=== PATIENT | male | born 2005 | race Two or more races ===

== ENCOUNTER 2025-06-12 17:50 | Emergency (ER) | payer BC, SELFPAY ==
[2025-06-12] VITALS (7 sets, daily range): BP systolic 96–138; BP diastolic 62–75; PULSE 71–113; RESP 16–18; TEMP 37.6; O2SAT 96–100
--- OUTSIDE RECORDS SUMMARY | 2025-06-12 17:59 | XMS_ITS | Encounter Summary ---
Author Organization [facility] Address [address] [place] [address] Care Team Providers Care Ceramic Research Engineer Name Role Phone Sebas Means MD Primary Care Provider +1 [phone] Encounter Details Date Type Department Care Team (Latest Contact Info) Description 02/02/2005 Outpatient Historical [facility] Medicine [address] [phone] Romy Carrera MD [address] [place] [phone] THRUSH (Primary Dx) Social History Tobacco Use Types Packs/Day Years Used Date Smoking Tobacco: Never Assessed Sex and Gender Information Value Date Recorded Sex Assigned at Not on file 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
--- OUTSIDE RECORDS SUMMARY | 2025-06-12 17:59 | XMS_ITS | Encounter Summary ---
Author Organization [facility] Address [address] [place] [address] Care Team Providers Care Geographic Area Intelligence Officer Name Role Phone Sebas Means MD Primary Care Provider [phone] [phone] Encounter Details Date Type Department Care Team (Latest Contact Info) Description 2004 Outpatient Historical [facility] Medicine [address] [phone] Romy Carrera MD [address] [place] [phone] Routine child health exam (Primary Dx) Social History Tobacco Use Types Packs/Day Years Used Date Smoking Tobacco: Never Assessed Sex and Gender Information Value Date Recorded Sex Assigned at Not on file 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
--- OUTSIDE RECORDS SUMMARY | 2025-06-12 17:59 | XMS_ITS | Clinical Summary ---
Author Organization [facility] Address [address] [place] [address] Care Team Providers Care Composition Roofer Name Role Phone Sebas Means MD Primary Care Provider +1 [phone] Allergies Active Allergy Reactions Criticality Noted Date Comments Azithromycin Rash Low 07/17/2016 Medications ACETAMINOPHEN (CHILDREN'S TYLENOL ORAL) Take by mouth. Active ibuprofen (ADVIL;MOTRIN) 100 mg/5 mL Oral suspension Take 200 mg by mouth every 6 hours as needed. Active OTHER OTC nasal spray . Active triamcinolone acetonide (KENALOG) 0.5 % Cream Apply to affected area 2 times daily. 15 Gram 8 Active HYDROcodone-aceta minophen (NORCO) 5-325 mg tabletIndications :Closed nondisplaced fracture of shaft of left clavicle, initial encounter Take 1 Tablet by mouth every 6 hours as needed for Pain. Max Daily Amount: 4 Tablets 12 Tablet 0 Active HYDROcodone-aceta minophen (NORCO) 5-325 mg tabletIndications :Closed nondisplaced fracture of shaft of left clavicle, initial encounter Take 1 Tablet by mouth every 6 hours as needed for Pain. Max Daily Amount: 4 Tablets 4 Tablet 0 Active Active Problems Problem Noted Date Diagnosed Date Reactive airway disease 11/14/2009 Immunizations Immunization Administration Dates Next Due (M-M-R II/PRIORIX)(12 MO UP) MEASLES, MUMPS AND RUBELLA VIRUS VACCINE, 0.5 ML IM/SUBCUT 01/07/2010 (VARIVAX)(12 MOS UP)VARICELL A VIRUS VACCINE (PF) 0.5 ML, SUB CUT 01/07/2010 Dt Dtp Dtap Vaccine 04/11/2006,01/31/2005 HIB, Unspecified Formulation 04/11/2006,02/01/20 05 Hepatitis B Vaccine 01/31/2005 IPV/OPV 01/31/2005 Pneumococcal 7-valent conjugate vaccine IM 01/02,01/31/2005 Family History Medical History Relation Name Comments Healthy Father Healthy Maternal Grandfather Healthy Maternal Grandmother Healthy Mother Diabetes Paternal Grandfather Hypertension Paternal Grandfather Hypertension Paternal Grandmother Breast Cancer Neg Hx Colon Cancer Neg Hx Relation Name Status Comments Father Alive Maternal Grandfather Maternal Grandmother Mother Alive Paternal Grandfather Paternal Grandmother Social History Tobacco Use Types Packs/Day Years Used Date Smoking Tobacco: Never Smokeless Tobacco: Never Alcohol Use Standard Drinks/Week Comments No 0 (1 standard drink = 0.6 oz pur e alcohol) Sex and Gender Information Value Date Recorded Sex Assigned at Not on file 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 Gender Identity Not on file Sexual Orientation Not on file Occupation Industry Job Start Date Job End Date Not on file Not on file Not on file Not on file Last Filed Vital Signs Vital Sign Reading Time Taken Comments Blood Pressure 125/64 05/06/2020 7:17 PM CDT Pulse 60 04/12/2018 4:06 PM CDT Temperature 36.8 C (98.3 F) 05/06/2020 7:17 PM CDT Respiratory Rate 20 05/06/2020 7:17 PM CDT Oxygen Saturation 99% 05/06/2020 7:17 PM CDT Inhaled Oxygen Concentration - - Weight 65.5 kg (144 lb 6.4 oz) 05/06/2020 4:38 P M CDT Height 171.5 cm (5' 7.5 ) 05/06/2020 4:38 PM CDT Body Mass Index 22.28 05/06/2020 4:38 PM CDT Plan of Treatment Health Maintenance Due Date Last Done Comments HEPATITIS B VACCINES (2 of 3 - 3-dose series) 02/28/2005 01/31/2005 CHLAMYDIA SCREENING (ANNUAL) 11-24 YEARS 11/30/2015 HPV VACCINES (1 - Male 3-dose series) 11/30/2019 DTAP/TDAP/TD VACCINES (3 - Tdap) 11/30/2023 04/11/20, 01/31/2005 Preventative Visit-Managed Medicaid 11/30/202312/02 INFLUENZA VACCINE (#1) 2025 Insurance [facility] MEDICAID Care Teams Composition Roofer Relationship Specialty Start Date End Date Sebas Means MD [address] [facility] [address] [place] [phone] PCP - General Family Practice 03/29/18
--- OUTSIDE RECORDS SUMMARY | 2025-06-12 17:59 | XMS_ITS | Encounter Summary ---
Author Organization [facility] Address [address] [place] [address] Care Team Providers Care Cleaner Furniture Name Role Phone Sebas Means MD Primary Care Provider [phone] [phone] Encounter Details Date Type Department Care Team (Late st Contact Info) Description 06/04/2020 Ancillary Orders [facility] [employer] [place] [address] [place] [address] Toya Carpio MD [address] [place] [address] Displaced fracture of lateral end of left clavicle, initial encounter for closed fracture Social History Tobacco Use Types Packs/Day Years Used Date Smoking Tobacco: Never Smokeless Tobacco: Never Alcohol Use Standard Drinks/Week Comments No 0 (1 standard drink = 0.6 oz pur e alcohol) Sex and Gender Information Value Date Recorded Sex Assigned at Not on file 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 No / Unsure 06/04/2020 2:36 PM CDT documented as of this encounter Plan of Treatment Not on file documented as of this encounter Results * XR CLAVICLE LEFT (06/04/2020 2:55 PM CDT) Anatomical Region Laterality Modality Upper Extremity Computed Radiogr aphy 06/04/2020 2:56 PM CDT Impressions 06/04/2020 3:12 PM CDT IMPRESSION: Please see below. Exam: XR CLAVICLE LEFT Date/Time of Exam: 06/04/2020 2:55 PM Reason For Exam: See Diagnosis. Diagnosis: Displaced fracture of lateral end of left clavicle, initial encounter for closed fracture. Comparison: May 06, 2020. FINDINGS: Two frontal projections show healing mid clavicular fracture. Alignment is anatomic. Prominent surrounding callus formation. Narrative Procedure Note LigiaRanDO - 06/04/2020 IMPRESSION: Please see below. Exam: XR CLAVICLE LEFT Date/Time of Exam: 06/04/2020 2:55 PM Reason For Exam: See Diagnosis. Diagnosis: Displaced fracture of lateral end of left clavicle, initial encounter for closed fracture. Comparison: May 06, 2020. FINDINGS: Two frontal projections show healing mid clavicular fracture. Alignment is anatomic. Prominent surrounding callus formation. Toya Carpio MD DIAGNOSTIC IMAGING ORDERAB LES Final Result documented in this encounter Visit Diagnoses Diagnosis Displaced fracture of lateral end of left clavicle, initial encounter for closed fracture Displaced fracture of lateral end of left clavicle, initial encounter for closed fracture documented in this encounter Care Teams Cleaner Furniture Relationship Specialty Start Date End Date Sebas Means MD [address] [phone] PCP - General Family Practice 03/29/18 documented as of this encounter
--- OUTSIDE RECORDS SUMMARY | 2025-06-12 17:59 | XMS_ITS | Clinical Summary ---
Author Organization [facility] Address [address] [facility] Attn: Epic Prelude ADT [place] [address] Care Team Providers Care Director Of Ancillary Services Name Role Phone Sebas Means MD Primary Care Provider [phone] [phone] Allergies Active Allergy Reactions Criticality Noted Date Comments Azithromycin Rash Low 07/17/2016 Medications No known medications Active Problems Problem Noted Date Diagnosed Date [...] Date Smoking Tobacco: Never Smokeless Tobacco: Never Tobacco Cessation:Counseling Given: Not Answered Alcohol Use Standard Drinks/Week Comments No 0 (1 standard drink = 0.6 oz pur e alcohol) Adolescent Education Answer Date Record ed Getting School Help Needed Not on file 03/25 Feeling Safe Answer Date Recorded Are you in a relationship wi th someone who hurts you emotionally and/or physically? No 04/06/2023 Sex and Gender Information Value Date Recorded Sex Assigned at Not on file Legal Sex Male 2:[address] OPERATOR Gender Identity Not on file Sexual Orientation Not on file Last Filed Vital Signs Vital Sign Reading Time Taken Comments Blood Pressure 125/63 04/06/2023 10:30 PM CDT Pulse 71 04/06/2023 10:30 PM CDT Temperature 36.8 C (98.2 F) 04/06/2023 10:30 PM CDT Respiratory Rate 16 04/06/2023 10:30 PM CDT Oxygen Saturation 100% 04/06/2023 10:30 PM CDT Inhaled Oxygen Concentration - - Weight 73.3 kg (161 lb 8 oz) 04/06/2023 7:41 PM CDT Height 177.8 cm (5' 10 ) 04/06/2023 7:41 PM CDT Body Mass Index 23.17 04/06/2023 7:41 PM CDT Plan of Treatment Health Maintenance Due Date Last Done Comments HEPATITIS B VACCINES (2 of 3 - 3-dose series) 02/28/2005 01/31/2005 CHLAMYDIA SCREENING (ANNUAL) 11-24 YEARS 11/30/2015 HPV VACCINES (1 - Male 3-dose series) 11/30/2019 DTAP/TDAP/TD VACCINES (3 - Tdap) 11/30/2023 04/11/20 06, 01/31/2005 Preventative Visit-Managed Medicaid 11/30/2023 INFLUENZA VACCINE (#1) [address] [place] [address] MEDICAID [facility] MEDICAID Care Teams Director Of Ancillary Services Relationship Specialty Start Date End Date Sebas Means MD [address] [facility] [address] [place] [phone] PCP - General Family Practice 03/29/18
--- OUTSIDE RECORDS SUMMARY | 2025-06-12 17:59 | XMS_ITS | Patient Health Record ---
Author Organization [facility] Address [address] [place] [address] Support Name Relationship Address Phone Princess Shorty Emergency Contact [address] [place], [place] [address] Princess Shorty Guarantor Unknown Reason For Referral No Information Plan Of Treatment No Information Insurance Providers Payer Name Payer Address Payer Phone Subscriber Number Group Number Insured Name Patient Relationship to Insured Coverage Start Date Coverage End Date [facility] Blue Medicaid [address] [address] [place] [address] [id number] Sebas Oro Self - patient is the insured [facility] Medicaid [address] [place] [address] [id number] Sebas Oro Self - patient is the insured
--- OUTSIDE RECORDS SUMMARY | 2025-06-12 17:59 | XMS_ITS | Encounter Summary ---
Author Organization [facility] Address [address] [place] [address] Care Team Providers Care Senior Mobile Application Developer Name Role Phone Sebas Means MD Primary Care Provider [phone] [phone] Encounter Details Date Type Department Care Team (Latest Contact Info) Description 2004 Outpatient Historical [facility] Medicine [address] [phone] Romy Carrera MD [address] [place] [phone] FEVER (Primary Dx) Social History Tobacco Use Types Packs/Day Years Used Date Smoking Tobacco: Never Assessed Sex and Gender Information Value Date Recorded Sex Assigned at Not on file 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
--- NOTE | 2025-06-12 18:25 | CTR_ITS ---
PROCEDURE INFORMATION: Exam: CT Abdomen And Pelvis With Contrast Exam date and time: 06/12/2025 6:33 PM Age: 19 years old Clinical indication: Abnormal findings; Abnormal lab test; Other: Anemia/elevated bili; Anemia with hyperbilirubinemia. Jaundiced sclera. ; Additional info: Jaundice TECHNIQUE: Imaging protocol: Computed tomography of the abdomen and pelvis with contrast. Radiation optimization: All CT scans at this facility use at least one of these dose optimization techniques: automated exposure control; mA and/or kV adjustment per patient size (includes targeted exams where dose is matched to clinical indication); or iterative reconstruction. Contrast material: OMNI 350; Contrast volume: 100 ml; Contrast route: INTRAVENOUS (IV); COMPARISON: CR (CHEST, ) 06/12/2025 6:25 PM RADIATION DOSE METRICS: Total DLP (mGy-cm): 430.29 FINDINGS: Liver: Diffusely hypoattenuating liver parenchyma suggestive of hepatic steatosis. Gallbladder and biliary ducts: Normal. No calcified stones. No ductal dilation. Pancreas: Normal. No ductal dilation. Spleen: Splenomegaly. Adrenal glands: Normal. No mass. Kidneys and ureters: Subcentimeter hypoattenuating focus in the mid kidney compatible with simple cysts. Stomach and bowel: Unremarkable. No obstruction. No mucosal thickening. Appendix: No evidence of appendicitis. Intraperitoneal space: Unremarkable. No free air. No significant fluid collection. Vasculature: Unremarkable. No abdominal aortic aneurysm. Lymph nodes: Unremarkable. No enlarged lymph nodes. Urinary bladder: Unremarkable as visualized. Reproductive: Unremarkable as visualized. Bones/joints: Unremarkable. No acute fracture. Soft tissues: Unremarkable. CT/CT abdomen pelvis w con* [id number] IMPRESSION: 1. Diffusely hypoattenuating liver parenchyma suggestive of hepatic steatosis. 2. Splenomegaly. COMMENTS: Consistent with the [employer]'s Incidental Findings Committee white paper (J Am Ankur Radiol 2018): Any incidental renal lesion less than 1 cm or classified as too small to characterize, or any incidental cystic renal lesion characterized as simple-appearing, is likely benign. No follow-up imaging is recommended for these lesions per consensus recommendations based on imaging criteria.
--- NOTE | 2025-06-12 18:25 | W.ED.RECABL ---
HPI - Recheck/Abnormal Lab/Rx General: Chief Complaint: Recheck/Abnormal Lab/Rx Stated Complaint: Hemoglobin 6. bilo high doc sent Time Seen by Provider: 06/12/25 18:16 Source: patient Mode of arrival: ambulatory Limitations: no limitations History of Present Illness: 19-year-old male states he has not been feeling well over the last month had increased weakness notices been having jaundice. Patient states he is a former drinker but has not drank in 5 months he denies any vomiting denies any blood in his stools. States just feels very weak and gets short of breath with exertion. Patient was seen at [facility] and was found to be anemic along with having an elevated bilirubin. He has no history of any liver issues denies any worsening. Factors Related Data Previous Rx's ?Medication ?Instructions ?Recorded ketoconazole 2 % shampoo See Rx Instructions topical 06/05/25 DIRECTED 30 days #240 mL Allergies Allergy/AdvReac Type Severity Reaction Status Date / Time amoxicillin Allergy Severe rash Verified 09/22/22 15:43 azithromycin (From Zithromax) Allergy Intermediate hives Verified 09/22/22 15:43 [facility] ED PFS: Medical History (Updated 06/13/25 @ 01:36 by Mary Pandya MD) Scleral icterus Encounter for screening for cardiovascular disorders Medication management History of alcohol abuse Jaundice Tinea versicolor Skin yeast infection Environmental and seasonal allergies . Pharyngitis Otitis media Social History Smoking and tobacco/nicotine status: never used tobacco/nicotine Physical Exam Const: COMMON NORMALS: patient oriented x3 GENERAL APPEARANCE: ill appearing HENMT: COMMON NORMALS: normocephalic and atraumatic HEAD & SCALP: normocephalic and atraumatic Eye: COMMON NORMALS: Equal, round and reactive pupils present and EOMs intact bilaterally PUPIL: Yes Equal, round and reactive pupils present OTHER: scleral icterus Neck/C-Spine: COMMON NORMALS: full ROM and supple Chest: COMMONS NORMALS: normal inspection of the chest and normal palpation of entire chest wall Resp: COMMON NORMALS: normal respiratory effort, No retractions, No use of accessory muscles and clear to auscultation bilaterally AUSCULTATION: clear to auscultation bilaterally Cardio: COMMON NORMALS: regular rate, regular rhythm and No murmurs present (Cardio) RATE: regular rate and tachycardic RHYTHM: regular rhythm GI: COMMON NORMALS: Normal to inspection, nondistended, normoactive bowel sounds present, Soft to palpation, non-tender and no masses PALPATION: Yes Soft to palpation Extremity: COMMON NORMALS: normal to inspection and full ROM Neuro: COMMON NORMALS: patient oriented x3, moves all extremities and no focal motor deficits Psych: COMMON NORMALS: mental status grossly normal, Normal thought process present and cooperative THOUGHT PROCESS: Normal thought process present Skin: COMMON NORMALS: no rashes or lesions noted and no wounds GENERAL SKIN EXAM: no rashes or lesions noted Course Vital Signs: Vital signs: Vital Signs Temperature 99.6 F 06/12/25 18:03 Pulse Rate 91 06/13/25 01:00 Respiratory Rate 16 06/12/25 19:00 Blood Pressure 128/72 06/13/25 01:00 Pulse Oximetry 100 06/13/25 01:00 Oxygen Delivery Me thod Room Air 06/13/25 01:00 MDM - Recheck/Abnormal Lab/Rx Medical Decision Making 19-year-old male presented here stating had labs drawn at office earlier today that showed elevated bilirubin along with anemia. States he has been feeling ill over the last 3 weeks. Patient was found to be anemic along with an elevated bilirubin. Did a CT scan here that showed hepatic steatosis along with splenomegaly. He is found to have hepatitis B likely causing his elevated bilirubin. He likely has a hemolytic anemia causing his anemia. I did speak to [facility] and will transfer there for higher level of care for hepatology. I did speak to Dr. Lacey who is excepting at this time. Patient's vitals here been normal we will transfuse him blood here. I informed patient of the findings and he understands and agrees to plan. Medical Records I reviewed the patient's medical records. Lab Data I reviewed the patient's lab results. 06/12/25 18:23 06/12/25 18:23 Radiology Impressions Abdomen/Pelvis CT 06/12/25 18:25 IMPRESSION: 1. Diffusely hypoattenuating liver parenchyma suggestive of hepatic steatosis. 2. Splenomegaly. COMMENTS: Consistent with the [employer]'s Incidental Findings Committee white paper (J Am Ankur Radiol 2018): Any incidental renal lesion less than 1 cm or classified as too small to characterize, or any incidental cystic renal lesion characterized as simple-appearing, is likely benign. No follow-up imaging is recommended for these lesions per consensus recommendations based on imaging criteria. Chest X-Ray 06/12/25 18:26 IMPRESSION: No acute findings. Laboratory Results WBC 3.06 10^3/uL (4.5-13.0) L 06/12/25 18: RBC 1.64 10^6/uL (3.85-5.65) L 06/12/25 18:23 Hgb 6.10 g/dL (13.2-15.6) L* 06/12/25 18: Hct 19.0 % (37-53) L* 06/12/25 18: MCV 115.9 fl (82-101) H 06/12/25 18: MCH 37.2 pg (27-33) H 06/12/25 18: MCHC 32.1 g/dL (30-55) 06/12/25 18: RDW 17.3 % (12.1-15.1) H 06/12/25 18:23 Plt Count 165 10^3/cmm (157-399) 06/12/25 18: MPV 9.6 fL (7.4-10.4) 06/12/25 18: Neut % (Auto) 80.7 % 06/12/25 18: Lymph % (Auto) 12.4 % 06/12/25 18: [place] % (Auto) 5.6 % 06/12/25 18: Eos % (Auto) 0.3 % 06/12/25 18: Baso % (Auto) 0.3 % 06/12/25 18: Neut # (Auto) 2.47 10^3/uL (1.8-8.0) 06/12/25 18: Lymph # (Auto) 0.4 10^3/uL (1.5-6.5) L 06/12/25 18: [place] # (Auto) 0.2 10^3/uL (0.2-0.9) 06/12/25 18: Eos # (Auto) 0.0 10^3/uL (0.0-0.8) 06/12/25 18: Baso # (Auto) 0.0 10^3/uL (0.0-0.1) 06/12/25 18: Nucleated RBC % (auto) 0 % 06/12/25 18: Nucleated RBCs # 0.0 /100WBC 06/12/25 18:23 PT 14.80 SECONDS (12.1-14.9) 06/12/25 18:23 INR 1.08 (0.8-1.2) 06/12/25 18:23 Sodium 141 mmol/L (136-145) 06/12/25 18:23 Potassium 3.6 mmol/L (3.5-5.1) 06/12/25 18:23 Chloride 106 mmol/L (98-107) 06/12/25 18: Carbon Dioxide 22 mmol/L (22-29) 06/12/25 18:23 Anion Gap 16.6 (5-19) 06/12/25 18:23 BUN 13 mg/dL (6-20) 06/12/25 18: Creatinine 0.8 mg/dL (0.7-1.2) 06/12/25 18:23 GFR Calculation 123.2 mL/min (90-130) 06/12/25 18:23 Glucose 90 mg/dL (65-115) 06/12/25 18:23 Calculated Osmolality 292 mOsm/kg (285-295) 06/12/25 18:23 Calcium 9.1 mg/dL (8.5-10.5) 06/12/25 18:23 Total Bilirubin 4.2 mg/dL (0.15-1.2) H 06/12/25 18:23 AST 29 U/L (0-40) 06/12/25 18:23 ALT 18 U/L (0-41) 06/12/25 18:23 Alkaline Phosphatase 99 U/L (40-130) 06/12/25 18: Lactate Dehydrogenase 415 U/L (135-225) H 06/12/25 18:23 Total Protein 7.2 g/dL (6.6-8.7) 06/12/25 18:23 Albumin 5.1 g/dL (3.5-5.2) 06/12/25 18: Globulin 2.1 g/dL (1.3-4.6) 06/12/25 18:23 Ethyl Alcohol < 10 mg/dL (0-10) 06/12/25 18:23 Hepatitis A IgM Ab Non-reactive (Nonreactive) 06/12/25 18:23 Hep Bs Antibody 6.0 (11.5-1000) L 06/12/25 18:23 Hep B Core Total Ab Non-reactive (Nonreactive) 06/12/25 18:23 Hepatitis C Antibody Non-reactive (Nonreactive) 06/12/25 18:23 Blood Type O Positive 06/12/25 18:29 Rho(D) Type Rh positive 06/12/25 18:29 Antibody Screen Positive 06/12/25 18:29 Crossmatch See Detail 06/12/25 18:29 All radiology interpretation(s) finalized by discharge EKG Data EKG 1: I personally reviewed and interpreted this EKG as follows: EKG interpretation date: 06/12/25 EKG interpretation time: 18:08 Interpretation: sinus tach hr [address] elevation qrs 89 qtc 368 Critical Care Time Critical Care Time: Critical Care Time: Yes Total Critical Care Time: 50 Attestation: The high probability of a clinically significant, sudden or life threatening deterioration of the patient's hepatic system(s) required my full and direct attention, intervention and personal management. The critical care time is as shown. This time is in addition to time spent performing any reported procedures but includes the following: [x] Data and vital sign review and interpretation [x] Patient assessment, examination and intervention [x] Documentation [x] Medication orders and management Discharge Plan Discharge Patient Disposition: Xfer Short-Term Hosp Clinical Impression: Hepatitis B, Anemia Condition: Stable Referrals: KYA Maravilla, FRUIT PEELER [Primary Care Provider, [facility]] Print Language: Micronesian Coding Level of Care Code ED Beam Dyer for Yaima Valerio
--- NOTE | 2025-06-12 18:26 | XRR_ITS ---
PROCEDURE INFORMATION: Exam: XR Chest Exam date and time: 06/12/2025 6:25 PM Age: 19 years old Clinical indication: Shortness of breath; C/O SOB TECHNIQUE: Imaging protocol: Radiologic exam of the chest. Views: 1 view. COMPARISON: No relevant prior studies available. FINDINGS: Lungs: Unremarkable. No consolidation. Pleural spaces: Unremarkable. No pleural effusion. No pneumothorax. Heart/Mediastinum: Unremarkable. No cardiomegaly. Bones/joints: Unremarkable. XR/XR chest 1V portable [id number] IMPRESSION: No acute findings.
[2025-06-12 18:28] LABS: Mean Corpuscular HGB Conc 32.1 g/dL (30-55); Mean Corpuscular Hemoglobin 37.2 pg (27-33); Mean Corpuscular Volume 115.9 fl (82-101); Nucleated Red Blood Cells % 0 %; Platelet Count 165 10^3/cmm (157-399); Red Blood Count 1.64 10^6/uL (3.85-5.65); White Blood Count 3.06 10^3/uL (4.5-13.0)
[2025-06-12] MEDS: iohexol 350 mg/mL 500 mL Btl (per mL) IV (18:40)
--- NOTE | 2025-06-12 18:43 | ECG_ITS ---
[facility] Test Date: 2025-06-12 Pat Name: Sebas Oro Department: Room: Gender: Male [employer] Super[employer]: : [id number] Requested By: Mary Pandya Order Number: [id number] Toussaint MD: Diaz Davidson M.D. Measurements Intervals [place] Rate: 104 P: 64 CA: 153 QRS: 58 QRSD: 94 T: 50 QT: 320 QTc: 422 Interpretive Statements SINUS TACHYCARDIA No previous ECG available for comparison Electronically Signed On 06-13-2025 11:57:31 CDT by Diaz Davidson M.D. [id number] [id number]
[2025-06-12 19:02] LABS: Alanine Aminotransferase 18 U/L (0-41); Albumin Level 5.1 g/dL (3.5-5.2); Alkaline Phosphatase 99 U/L (40-130); Anion Gap 16.6 (5-19); Aspartate Amino Transferase 29 U/L (0-40); Blood Urea Nitrogen 13 mg/dL (6-20); Calcium 9.1 mg/dL (8.5-10.5); Carbon Dioxide 22 mmol/L (22-29); Chloride 106 mmol/L (98-107); Creatinine Clr Calc Pharmacy 158.3842; Globulin 2.1 g/dL (1.3-4.6); Glucose 90 mg/dL (65-115); Osmolality Calculated 292 mOsm/kg (285-295); Potassium 3.6 mmol/L (3.5-5.1); Sodium 141 mmol/L (136-145); Total Protein 7.2 g/dL (6.6-8.7)
[2025-06-12 19:03] LABS: INR 1.08 (0.8-1.2); Prothrombin Time 14.80 SECONDS (12.1-14.9)
[2025-06-12 19:04] LABS: Alcohol Level < 10 mg/dL (0-10)
[2025-06-12 19:18] LABS: Hematocrit 19.0 % (37-53); Hemoglobin 6.10 g/dL (13.2-15.6)
[2025-06-13] VITALS (9 sets, daily range): BP systolic 107–133; BP diastolic 46–72; PULSE 72–91; RESP 16; O2SAT 94–100
[2025-06-13 00:52] LABS: Hepatitis A Antibody IgM Non-Reactive (Nonreactive)
== END 2025-06-13 08:15 | disposition short-term general hospital (02) ==
PROVIDERS: Emergency Provider Emergency Medicine; PCP Nurse Practitioner Family
DX: B19.10 Unspecified viral hepatitis B without hepatic coma (principal); D64.9 Anemia, unspecified
CPT/HCPCS: 36415; 71045; 74177; 80053; 80061; 80307; 80503; 81003; 82247; 82248; 82306; 83036; 83615; 84439; 84443; 85025; 85610; 86705; 86706; 86709; 86803; 86850; 86870; 86900; 86920; 87340; 93005; 96360; 99285; J7030; J9999

== ENCOUNTER 2025-06-18 12:54 | Outpatient (CLI) | payer BC, MEDICAID, SELFPAY ==
[2025-06-18 14:01] LABS: Hematocrit 28.6 % (37-53); Hemoglobin 9.40 g/dL (13.2-15.6); Mean Corpuscular HGB Conc 32.9 g/dL (30-55); Mean Corpuscular Hemoglobin 35.2 pg (27-33); Mean Corpuscular Volume 107.1 fl (82-101); Nucleated Red Blood Cells % 0 %; Platelet Count 185 10^3/cmm (157-399); Red Blood Count 2.67 10^6/uL (3.85-5.65); White Blood Count 4.20 10^3/uL (4.5-13.0)
[2025-06-18 14:17] LABS: Alanine Aminotransferase 14 U/L (0-41); Albumin Level 4.6 g/dL (3.5-5.2); Alkaline Phosphatase 68 U/L (40-130); Anion Gap 15.0 (5-19); Aspartate Amino Transferase 12 U/L (0-40); Blood Urea Nitrogen 12 mg/dL (6-20); Calcium 8.7 mg/dL (8.5-10.5); Carbon Dioxide 23 mmol/L (22-29); Chloride 105 mmol/L (98-107); Globulin 1.8 g/dL (1.3-4.6); Glucose 106 mg/dL (65-115); Osmolality Calculated 288 mOsm/kg (285-295); Potassium 4.0 mmol/L (3.5-5.1); Sodium 139 mmol/L (136-145); Total Protein 6.4 g/dL (6.6-8.7)
[2025-06-19 00:48] LABS: Estmated Average Glucose 88; Hemoglobin A1C 4.7 % (4.0-6.0)
== END 2025-06-18 12:55 | disposition home or self-care (01) ==
LOC: LAB 13:00
PROVIDERS: PCP Nurse Practitioner Family; Visit Provider Nurse Practitioner Family
DX: D59.11 Warm autoimmune hemolytic anemia (principal); R17 Unspecified jaundice; F10.11 Alcohol abuse, in remission; Z79.899 Other long term (current) drug therapy; Z13.6 Encounter for screening for cardiovascular disorders
CPT/HCPCS: 36415; 80053; 83010; 83036; 83615; 85025; 85045

== ENCOUNTER → 2025-06-25 09:47 | Outpatient (BNVA) | payer BC, MEDICAID, SELFPAY | PROVIDERS: PCP Nurse Practitioner Family; Visit Provider Nurse Practitioner Family | DX: D59.11 Warm autoimmune hemolytic anemia (principal); Z79.899 Other long term (current) drug therapy | CPT/HCPCS: 80053; 83010; 83615; 85025; 85045 ==

== ENCOUNTER 2025-07-15 12:45 | Oncology outpatient (recurring) (ONCR) | payer BC, MEDICAID, SELFPAY ==
[2025-07-01 16:41] LABS: Hematocrit 33.7 % (37-53); Hemoglobin 11.30 g/dL (13.2-15.6); Mean Corpuscular HGB Conc 33.5 g/dL (30-55); Mean Corpuscular Hemoglobin 35.4 pg (27-33); Mean Corpuscular Volume 105.6 fl (82-101); Nucleated Red Blood Cells % 0 %; Platelet Count 211 10^3/cmm (157-399); Red Blood Count 3.19 10^6/uL (3.85-5.65); White Blood Count 6.34 10^3/uL (4.5-13.0)
[2025-07-01 16:48] LABS: Alanine Aminotransferase 33 U/L (0-41); Albumin Level 5.1 g/dL (3.5-5.2); Alkaline Phosphatase 64 U/L (40-130); Anion Gap 16.5 (5-19); Aspartate Amino Transferase 18 U/L (0-40); Blood Urea Nitrogen 15 mg/dL (6-20); Calcium 9.5 mg/dL (8.5-10.5); Carbon Dioxide 23 mmol/L (22-29); Chloride 103 mmol/L (98-107); Globulin 2.0 g/dL (1.3-4.6); Glucose 116 mg/dL (65-115); Osmolality Calculated 288 mOsm/kg (285-295); Potassium 4.5 mmol/L (3.5-5.1); Sodium 138 mmol/L (136-145); Total Protein 7.1 g/dL (6.6-8.7)
[2025-07-15 13:53] LABS: Hematocrit 37.7 % (37-53); Hemoglobin 12.80 g/dL (13.2-15.6); Mean Corpuscular HGB Conc 34.0 g/dL (30-55); Mean Corpuscular Hemoglobin 34.1 pg (27-33); Mean Corpuscular Volume 100.5 fl (82-101); Nucleated Red Blood Cells % 0 %; Platelet Count 228 10^3/cmm (157-399); Red Blood Count 3.75 10^6/uL (3.85-5.65); White Blood Count 7.06 10^3/uL (4.5-13.0)
[2025-07-15 14:08] LABS: Alanine Aminotransferase 14 U/L (0-41); Albumin Level 4.9 g/dL (3.5-5.2); Alkaline Phosphatase 56 U/L (40-130); Anion Gap 13.8 (5-19); Aspartate Amino Transferase 11 U/L (0-40); Blood Urea Nitrogen 10 mg/dL (6-20); Calcium 9.6 mg/dL (8.5-10.5); Carbon Dioxide 25 mmol/L (22-29); Chloride 105 mmol/L (98-107); Creatinine Clr Calc Pharmacy 215.2100; Globulin 1.8 g/dL (1.3-4.6); Glucose 108 mg/dL (65-115); Osmolality Calculated 290 mOsm/kg (285-295); Potassium 3.8 mmol/L (3.5-5.1); Sodium 140 mmol/L (136-145); Total Protein 6.7 g/dL (6.6-8.7)
== END 2025-07-26 23:59 | disposition home or self-care (01) ==
PROVIDERS: Internal Medicine; PCP Nurse Practitioner Family; Visit Provider Internal Medicine Medical Oncology
DX: D59.11 Warm autoimmune hemolytic anemia; Z53.9 Procedure and treatment not carried out, unspecified reason
CPT/HCPCS: 36415; 80053; 82248; 82746; 83010; 83615; 85025; 85045

== ENCOUNTER → 2025-08-12 13:33 | Outpatient (BNVA) | payer BC, MEDICAID, SELFPAY | PROVIDERS: PCP Nurse Practitioner Family; Visit Provider Nurse Practitioner Family | DX: D59.11 Warm autoimmune hemolytic anemia (principal) | CPT/HCPCS: 80053; 85025 ==

== ENCOUNTER 2025-08-26 12:15 | Oncology outpatient (recurring) (ONCR) | payer BC, MEDICAID, SELFPAY ==
[2025-07-29 10:23] LABS: Hematocrit 38.9 % (37-53); Hemoglobin 13.10 g/dL (13.2-15.6); Mean Corpuscular HGB Conc 33.7 g/dL (30-55); Mean Corpuscular Hemoglobin 33.0 pg (27-33); Mean Corpuscular Volume 98.0 fl (82-101); Nucleated Red Blood Cells % 0 %; Platelet Count 189 10^3/cmm (157-399); Red Blood Count 3.97 10^6/uL (3.85-5.65); White Blood Count 7.36 10^3/uL (4.5-13.0)
[2025-07-29 10:40] LABS: Alanine Aminotransferase 15 U/L (0-41); Albumin Level 4.7 g/dL (3.5-5.2); Alkaline Phosphatase 59 U/L (40-130); Anion Gap 13.0 (5-19); Aspartate Amino Transferase 12 U/L (0-40); Blood Urea Nitrogen 13 mg/dL (6-20); Calcium 9.2 mg/dL (8.5-10.5); Carbon Dioxide 27 mmol/L (22-29); Chloride 105 mmol/L (98-107); Globulin 1.9 g/dL (1.3-4.6); Glucose 103 mg/dL (65-115); Osmolality Calculated 292 mOsm/kg (285-295); Potassium 4.0 mmol/L (3.5-5.1); Sodium 141 mmol/L (136-145); Total Protein 6.6 g/dL (6.6-8.7)
[2025-08-26 12:14] LABS: Hematocrit 43.0 % (37-53); Hemoglobin 14.40 g/dL (13.2-15.6); Mean Corpuscular HGB Conc 33.5 g/dL (30-55); Mean Corpuscular Hemoglobin 30.3 pg (27-33); Mean Corpuscular Volume 90.5 fl (82-101); Nucleated Red Blood Cells % 0 %; Platelet Count 202 10^3/cmm (157-399); Red Blood Count 4.75 10^6/uL (3.85-5.65); White Blood Count 5.64 10^3/uL (4.5-13.0)
[2025-08-26 12:38] LABS: Alanine Aminotransferase 14 U/L (0-41); Albumin Level 5.1 g/dL (3.5-5.2); Alkaline Phosphatase 85 U/L (40-130); Anion Gap 17.4 (5-19); Aspartate Amino Transferase 15 U/L (0-40); Blood Urea Nitrogen 10 mg/dL (6-20); Calcium 9.8 mg/dL (8.5-10.5); Carbon Dioxide 25 mmol/L (22-29); Chloride 103 mmol/L (98-107); Globulin 1.9 g/dL (1.3-4.6); Glucose 100 mg/dL (65-115); Osmolality Calculated 291 mOsm/kg (285-295); Potassium 4.4 mmol/L (3.5-5.1); Sodium 141 mmol/L (136-145); Total Protein 7.0 g/dL (6.6-8.7)
== END 2025-08-26 23:59 | disposition home or self-care (01) ==
PROVIDERS: Nurse Practitioner; PCP Nurse Practitioner Family; Visit Provider Internal Medicine Medical Oncology
DX: Z53.9 Procedure and treatment not carried out, unspecified reason; D59.11 Warm autoimmune hemolytic anemia
CPT/HCPCS: 36415; 80053; 83010; 83615; 85025; 85045